=== PATIENT | male | born 2000 | race Caucasian/White ===

== ENCOUNTER 2023-02-18 13:05 | Outpatient (CLI) | payer MEDICAID ==
[2023-02-18] MEDS ORDERED: midazolam 1 mg/ML 2ml injection ONE (17:13)
[2023-02-18] MEDS ORDERED: LIDOcaine 2% (20mg/ml) 5ml vial ONE (17:14)
[2023-02-18] MEDS ORDERED: fentaNYL /PF 50mcg/ml 5ml ampule ONE (17:14)
[2023-02-18] MEDS ORDERED: propofol inj 20 ML IV ONE (17:14)
[2023-02-18] MEDS ORDERED: dexamethasone sod phosphate 10mg/ml inj ONE (17:33)
[2023-02-18] MEDS ORDERED: sevoflurane 250ml liquid IH ONE (17:33)
[2023-02-18] MEDS ORDERED: ceFAZolin 1000mg inj ONE ×4 (17:45→17:54)
[2023-02-18] MEDS ORDERED: ondansetron/PF 4mg/2ml inj ONE (17:57)
== END 2023-02-18 23:59 | disposition home or self-care (01) ==
LOC: RAD 13:05
PROVIDERS: ATTEND Family Medicine
DX: N43.2 Other hydrocele (principal); N50.811 Right testicular pain
CPT/HCPCS: 76870; 93976; J0690; J2250; J2405; J2704; J3010; J3490; J1100

== ENCOUNTER 2023-02-18 13:50 | Day surgery (SDC) | payer MEDICAID ==
[~2023-02-18] VITALS: Ht 172.7 cm; Wt 131.0 kg
[2023-02-18] VITALS (12 sets, daily range): BP systolic 117–190; BP diastolic 75–114
[2023-02-18] MEDS ORDERED: ondansetron/PF 4mg/2ml inj IV ONE (14:05)
[2023-02-18] MEDS ORDERED: normal saline 1000ML IV soln IVB ONE (14:05)
[2023-02-18] MEDS ORDERED: morphine 4 MG/ML inj SYRINge IV PRN ×2 (14:05→17:10)
[2023-02-18] MEDS ORDERED: ketorolac trometh. 30mg/ml inj. IV ONE (14:25)
[2023-02-18] MEDS ORDERED: CefTRIAXone 2gm/D5W 50ml BAG 50 ML IV ONE (14:25)
[2023-02-18 14:28] LABS: BASOPHILS # (AUTO) 0.1 X10'3 (0-0.2); BASOPHILS % (AUTO) 0.9 % (0-1); EOSINOPHILS # (AUTO) 0.4 X10'3 (0-0.9); EOSINOPHILS % (AUTO) 2.8 % (0-6); HEMATOCRIT 46.3 % (42.0-52.0); HEMOGLOBIN 15.7 g/dl (14.0-17.9); LYMPHOCYTES # (AUTO) 2.5 X10'3 (1.1-4.8); LYMPHOCYTES % (AUTO) 19.1 % (21-51); MEAN CORPUSCULAR HEMOGLOBIN 29.9 PG (27.0-31.0); MEAN CORPUSCULAR HGB CONC 33.9 g/dL (33.0-36.5); MEAN CORPUSCULAR VOLUME 88.2 FL (78-98); MEAN PLATELET VOLUME 8.1 FL (7.4-10.4); MONOCYTES # (AUTO) 0.8 X10'3 (0-0.9); MONOCYTES % (AUTO) 6.2 % (2-12); NEUTROPHILS # (AUTO) 9.2 X10'3 (1.8-7.7); PLATELET COUNT 339 X10'3 (140-440); RED BLOOD COUNT 5.25 X10'6 (4.70-6.10); RED CELL DISTRIBUTION WIDTH 13.5 % (11.5-14.5); WHITE BLOOD COUNT 12.9 X10'3 (4.5-11.0)
[2023-02-18 14:43] LABS: ALANINE AMINOTRANSFERASE 48 U/L (12-78); ALBUMIN/GLOBULIN RATIO 0.9 (1.1-1.5); ALKALINE PHOSPHATASE 50 IU/L (46-116); ANION GAP 7 (8-16); ASPARTATE AMINO TRANSFERASE 22 U/L (10-37); BILIRUBIN,TOTAL 0.8 MG/DL (0.1-1.0); BLOOD UREA NITROGEN 16 MG/DL (7-18); BUN/CREATININE RATIO 16.7 (10.0-20.0); CALCIUM 9.3 MG/DL (8.5-10.1); CHLORIDE 106 MMOL/L (99-107); CREATININE 0.96 MG/DL (0.60-1.10); GLUCOSE 112 MG/DL (70-104); POTASSIUM 3.9 MMOL/L (3.5-5.1); SODIUM 142 MMOL/L (135-145); TOTAL CARBON DIOXIDE 28.8 MMOL/L (24-32); TOTAL PROTEIN 8.4 G/DL (6.4-8.2); eGFR > 90 ML/MIN
[2023-02-18] MEDS ORDERED: bacitracin 15gm ointment TP ONE (17:09)
[2023-02-18] MEDS ORDERED: BUPIVAcaine 0.5% inj/PF 30 ML ONE (17:09)
[2023-02-18] MEDS ORDERED: labetalol 20mg/4ml (5mg/ml) syringe IV PRN (17:10)
[2023-02-18] MEDS ORDERED: ondansetron/PF 4mg/2ml inj IV PRN (17:10)
[2023-02-18] MEDS ORDERED: fentaNYL/PF 50MCG/1 ML 2ML syringe IV PRN ×2 (17:10)
[2023-02-18] MEDS ORDERED: ringers solution, lacted 1,000 ML IV SCH (17:10)
[2023-02-18] MEDS ORDERED: hydrALAZINE 20mg/ml inj. IV PRN (17:10)
[2023-02-18] MEDS ORDERED: BUPIVAcaine 0.5% inj/PF 30 ml vial IJ ONE (18:02)
--- NOTE | 2023-02-18 19:17 | NUR ---
Received from OR via [facility], accompanied by Anesthesiologist DR CAMARILLO and report given by Anesthesiologist AND GEOSPATIAL SPECIALIST. PT VERY DROWSY, NO S/S OF DISTRESS/DISCOMFORT. PT W/MESH UNDERWARE ON W/GAUZE FLUFFS COVERING INCISION'S CDI. Addendum: 02/18/23 at 2026 by Shala Tello RN Amended: Links added.
[2023-02-18] MEDS: morphine 2 MG/ML inj. syringe IV PRN ×2 (19:51→20:07)
[2023-02-18] MEDS ORDERED: HYDROcodone/acetaminophen 5mg/325mg tablet PO ONE (20:55)
--- NOTE | 2023-02-18 21:27 | NUR ---
PT UP AND ABLE TO AMBULATE SAFELY, NORCO 5/325 MG GIVEN FOR RIDE HOME. D/C INSTRUCTIONS GIVEN AND GONE OVER W/PT WHO VERBALIZED UNDERSTANDING. PT D/CD TO HOME VIA W/C TO PRIVATE VEHICLE W/O INCIDENT. Addendum: 02/18/23 at 2150 by Shala Tello RN Amended: Links added.
[2023-02-19] MEDS ORDERED: ceFAZolin/D5W- 1GM premix 50 ML IV SCH
== END 2023-02-18 21:27 | disposition home or self-care (01) ==
LOC: ER 13:51 → OR 17:33 → ER 21:27 → OR 21:27
PROVIDERS: ATTEND Student in an Organized Health Care Education/Training Program
DX: N44.00 Torsion of testis, unspecified (principal); N50.812 Left testicular pain
CPT/HCPCS: 36415; 54520; 54640; 80053; 85025; 96365; 96375; 96376; 99285; J0696; J1885; J2270; J3490; J7030; S0020; Z7506; Z7508; Z7512; 99283; A4215; A4618; A7000